=== PATIENT | female | born 1960 | race Caucasian/White ===

== ENCOUNTER 2020-08-10 10:52 | Outpatient (CLI) | payer MEDICARE, SELFPAY ==
[2020-08-10 12:35] LABS: EDCOVIDSCREEN Negative (Negative)
== END 2020-08-10 10:53 | disposition home or self-care (01) ==
PROVIDERS: PCP Family Medicine; Visit Provider Obstetrics & Gynecology Gynecology
DX: Z01.812 Encounter for preprocedural laboratory examination (principal); Z20.822 Contact with and (suspected) exposure to COVID-19
CPT/HCPCS: 36415; 87426; C9803; U0003; U0005

== ENCOUNTER 2020-08-12 00:18 | Day surgery (SDC) | payer MEDICARE, SELFPAY ==
[2020-08-09 15:58] VITALS: BMI 39.4
[2020-08-12 06:22] VITALS: BP 122/72; PULSE 76; RESP 16; TEMP 36.1; O2SAT 100
[2020-08-12] MEDS: ACETAMINOPHEN 500 MG TABLET 1000 MG PO (06:29)
[2020-08-12] MEDS: LACTATED RINGERS 1,000 ML 30 ML IV CONT (06:37)
--- NOTE | 2020-08-12 06:47 | WPDHPUPDATE1 ---
History and Physical Update Update Date/Time: 08/12/20 06:47 History and Physical has been reviewed, including an updated exam of the patient. There are NO changes in the patient's condition. Risks, benefits, and alternatives have been discussed and questions answered. Patient agrees to proceed with procedure.
--- NOTE | 2020-08-12 06:47 | PM.HPGS ---
History of Present Illness History of Present Illness Consent: Risks, benefits, and alternatives have been discussed and questions answered. Patient agrees to proceed with procedure. Chief complaint: post menopausal bleeding Narrative: Isis Sanchez is a 59 year old female new to me this week with complaints of bleeding on and off since August of 2018. The patient had spotting until February of this year where she has been having bleeding with heavy clots randomly.. She has also had episodes recently of gushing clear vaginal mucus. The patient states she has had no pain related to the bleeding episodes. It was recommended to proceed with hysteroscopy D and C to evaluate the lining of the endometrium. Risks of infection, bleeding, and perforation were reviewed. Possible pathology was discussed. Patient's questions were answered and she agrees to proceed. Review of Systems Constitutional: Constitutional: Reports fatigue ENT: Reports other (hayfever) Gastrointestinal: Gastrointestinal: Reports heartburn Musculoskeletal: Musculoskeletal: Reports arthralgias and Reports neck pain PMFSH Past Medical History Medical History (Updated 08/12/20 @ 06:56 by Ligia Bennett MD) Depression GERD (gastroesophageal reflux disease) Hyperlipidemia Neck mass 6 months old had excised then post op radiation and cobalt treatments (normal spontaneous vaginal delivery) x3 PRINCESS (obstructive sleep apnea) Surgical History Surgical History (Updated 08/12/20 @ 06:55 by Ligia Bennett MD) H/O laparoscopy x 2 cysts on ovaries x1 for BTL Hx laparoscopic cholecystectomy S/P D&C (status post dilation and curettage) 2011 S/P right knee arthroscopy Social History Social History Smoking status: Never smoker Alcohol intake: never Substance use type: does not use Spiritual care concerns: No Meds Home Medications and Allergies Home Medications Medication Instructions Recorded Confirmed Type Eye Vitamin and Minerals 1 tab-cap PO DAILY 08/09/20 08/12/20 History Vitamin D3 1 cap PO DAILY 08/09/20 08/12/20 History ibuprofen 800 mg BYMOUTH PRN PRN 08/09/20 08/12/20 History loratadine 10 mg BYMOUTH DAILY 08/09/20 08/12/20 History Allergies Allergy/AdvReac Type Severity Reaction Status Date / Time Sulfa (Sulfonamide Allergy Intermediate Hives Verified 08/12/20 06:27 Antibiotics) adhesive tape AdvReac Intermediate Blister Verified 08/12/20 06:27 Vital Signs Vital Signs - 24 hr 08/12/20 06:22 Temperature 96.9 F L Pulse Rate 76 Respiratory Rate 16 Blood Pressure 122/72 Pulse Oximetry 100 Exam Const: General: healthy appearing and alert Orientation/consciousness: patient oriented x3 Resp: Effort & Inspection: normal respiratory effort Auscultation: clear to auscultation bilaterally Cardio: Rate: regular rate Rhythm: regular rhythm GI: GI Palp: Yes Soft to palpation, No Tenderness to palpation present (GI) and No Palpable mass present : External Female Exam: normal external appearance Speculum Exam - Vagina: normal appearance of the vagina and normal vaginal discharge Speculum Exam - Cervix: normal appearance of the cervix Bimanual exam- vagina & uterus: uterine size normal and consistency normal Bimanual Exam- Adnexa, other: normal adnexae and No adnexal tenderness Neuro: General: patient oriented x3 Assessment and Plan Assessment and plan (1) Post-menopausal bleeding: Code(s): N95.0 - Postmenopausal bleeding Status: Acute Assessment and Plan: plan to proceed with hysteroscopy with D&C
--- NOTE | 2020-08-12 07:03 | WPDANESEPPF ---
Anes - Initial Pre Proc Eval Procedure: Operation Date: 08/12/20 07:30 Proposed Procedures p Hysteroscopy Dilation and Curettage - Ligia Bennett MD Date/Time: 08/12/20 07:03 Surgeon: Ligia Bennett MD Pre Op Diagnosis: post menopausal bleeding Patient Data Age: 59 Gender: F Height: 5 ft 9 in Weight: 121 kg Last Vital Signs Temp 96.9 F L 08/12/20 06:22 Pulse 76 08/12/20 06:22 Resp 16 08/12/20 06:22 BP 122/72 08/12/20 06:22 Pulse Ox 100 08/12/20 06:22 Allergies Allergy/AdvReac Type Severity Reaction Status Date / Time Sulfa (Sulfonamide Allergy Intermediate Hives Verified 08/12/20 06:27 Antibiotics) adhesive tape AdvReac Intermediate Blister Verified 08/12/20 06:27 Home Medications Medication Instructions Recorded Confirmed Type Eye Vitamin and Minerals 1 tab-cap PO DAILY 08/09/20 08/12/20 History Vitamin D3 1 cap PO DAILY 08/09/20 08/12/20 History ibuprofen 800 mg BYMOUTH PRN PRN 08/09/20 08/12/20 History loratadine 10 mg BYMOUTH DAILY 08/09/20 08/12/20 History Patient hx anesthesia problems: none Family hx anesthesia problems: none PMFSH Past Medical History Medical History (Updated 08/12/20 @ 06:56 by Ligia Bennett MD) Depression GERD (gastroesophageal reflux disease) Hyperlipidemia Neck mass 6 months old had excised then post op radiation and cobalt treatments (normal spontaneous vaginal delivery) x3 PRINCESS (obstructive sleep apnea) Surgical History Surgical History (Updated 08/12/20 @ 06:55 by Ligia Bennett MD) H/O laparoscopy x 2 cysts on ovaries x1 for BTL Hx laparoscopic cholecystectomy S/P D&C (status post dilation and curettage) 2011 S/P right knee arthroscopy Social History Social History Smoking status: Never smoker Alcohol intake: never Substance use type: does not use Spiritual care concerns: No Anes - Eval Final PreProcedure Day of Procedure 08/12/20 07:03 Patient weight: morbidly obese Heart: regular rate and rhythm Lungs: clear to auscultation Airway: Mallampati scale class II Neurological: alert and oriented Last oral intake: >/= 8 hours ASA classification: III Emergent: no Anesthetic plan: proceed Anesthesia type and monitoring: general GIVS and standard monitoring Informed Consent: The patient's anesthetic plan and its attendant risks and benefits were discussed with the patient/family/POA. Questions were solicited and answers provided to the satisfaction of the patient/family/POA.
[2020-08-12 08:00] VITALS: BP 112/69; PULSE 66; RESP 16; O2SAT 95
[2020-08-12] MEDS: KETOROLAC 30 MG/ML VIAL (*BKC) IV PUSH (08:16)
[2020-08-12] MEDS: fentaNYL CITRATE INJ (*CRX) 100 MCG/2 ML VIAL 25 MCG IV PUSH ×3 (08:18→08:45)
[2020-08-12 08:30] VITALS: BP 116/72; PULSE 68; RESP 20
--- NOTE | 2020-08-12 08:37 | P.OP_ITS ---
Procedure Note - Detailed Date of Procedure 08/12/20 Pre-op Diagnosis post menopausal bleeding Post-op Diagnosis same Procedure Performed D and C hysteroscopy with MyoSure resection Surgeon Ligia Bennett MD Anesthesia MAC and local Findings uterus sounds to 7cm the endometrium was very thickened with calcifications and papillary excrescence Description of Procedure the patient was taken to the operating room and placed in the dorsal lithotomy position. She was prepped and draped in the usual sterile fashion. [place] speculum was placed in the vagina and the cervix is grasped on the anterior lip with a tenaculum and injected with 1% lidocaine in each quadrant. The uterus is sounded to 7cm. The cervix is serially dilated with [place] the diagnostic hysteroscope was placed with the stated findings the MyoSure device is opened and placed in the majority of the thickened tissue is excised under direct visualization. The feel became bloody in unable to visualize the MyoSure device is removed. Medium sharp curette is used to sharply curette the remainder of the endometrium. All instruments removed. Patient is awakened from anesthesia and taken to recovery in stable condition. Sponge, needle, and instrument counts are correct per the OR staff. Estimated Blood Loss 5 Drains No Packing No Pathology yes ( Endometrial curettings in shape) Complications No immediate complications Condition stable Disposition PACU
[2020-08-12] MEDS: oxyCODONE HCL (*CRX) 5 MG TAB IR PO (08:43)
[2020-08-12 09:00] VITALS: BP 113/67; PULSE 65; RESP 20
[2020-08-12 09:20] VITALS: BP 116/69; PULSE 54; RESP 20
== END 2020-08-12 09:25 | disposition home or self-care (01) ==
PROVIDERS: PCP Family Medicine; Visit Provider Obstetrics & Gynecology Gynecology
PROC: 0U5B8ZZ Destruction of Endometrium, Via Natural or Artificial Opening Endoscopic (ICD-10-PCS; CPT 58563; principal; 2020-08-12 07:30)
DX: N95.0 Postmenopausal bleeding (principal); C54.1 Malignant neoplasm of endometrium; F32.9 Major depressive disorder, single episode, unspecified; K21.9 Gastro-esophageal reflux disease without esophagitis; E78.5 Hyperlipidemia, unspecified; G47.33 Obstructive sleep apnea (adult) (pediatric); E66.01 Morbid (severe) obesity due to excess calories; Z68.39 Body mass index [BMI] 39.0-39.9, adult
CPT/HCPCS: 58558; 36415; 87426; 88305; A9270; C9803; J1885; J2250; J2704; J3010; J7030; J7120

== ENCOUNTER 2024-04-25 17:07 | Emergency (ER) | payer MEDICARE, SELFPAY ==
[2024-04-25 17:21] VITALS: BP 132/81; PULSE 85; RESP 18; TEMP 36.2; O2SAT 98
--- NOTE | 2024-04-25 17:24 | ED.LOWEXIN ---
HPI - Extremity Injury (Lower) General Chief Complaint: Extremity Injury, Lower Stated Complaint: right ankle swelling/pain Source: patient Mode of arrival: ambulatory Limitations: no limitations History of Present Illness HPI Narrative: 63-year-old female presented for complaint of right ankle pain and swelling for 2 days. States the pain has progressed from a dull ache, and states she can not tolerate weight-bearing today. Denies injury. Has been taking ibuprofen with temporary relief. History of gout. Denies numbness, tingling, weakness, swelling or deformity. Related Data Home Medications ?Medication ?Instructions ?Recorded ?Confirmed ?Last Taken ?Type Eye Vitamin and Minerals 1 tab-cap PO DAILY 08/09/20 08/12/20 08/09/20 History Vitamin D3 1 cap PO DAILY 08/09/20 08/12/20 08/09/20 History ibuprofen 800 mg BYMOUTH PRN PRN Pain 08/09/20 08/12/20 08/09/20 History loratadine 10 mg BYMOUTH DAILY 08/09/20 08/12/20 08/11/20 History Bifidobacterium animalis 6 mg (5 1 cap PO DAILY 04/25/24 04/25/24 Unknown History billion cell) capsule ascorbate calcium (vitamin C) 814 mg PO 04/25/24 Unknown History mg/gram oral powder (Vitamin C (ascorbate calcium)) famotidine 20 mg tablet 20 mg PO DAILY 04/25/24 Unknown History Allergies Allergy/AdvReac Type Severity Reaction Status Date / Time Sulfa (Sulfonamide Allergy Intermediate Hives Verified 04/25/24 17:25 Antibiotics) adhesive tape AdvReac Intermediate Blister Verified 04/25/24 17:25 Review of Systems Review of Systems: CONSTITUTIONAL: Denies body aches, fever, chills CARDIOVASCULAR: Denies chest pain, palpitations, or edema. RESPIRATORY: Denies cough or dyspnea. GASTROINTESTINAL: Denies abdominal pain, nausea, vomiting, or diarrhea. SKIN: Denies rash or wounds. MUSCULOSKELETAL: Reports right ankle pain and swelling NEUROLOGIC: Denies headache, numbness, tingling, or weakness. PSYCH: Denies depression or anxiety. All systems reviewed & are unremarkable except as noted in HPI and below PMFSH Past Medical History Medical History Neck mass 6 months old had excised then post op radiation and cobalt treatments (normal spontaneous vaginal delivery) x3 Depression GERD (gastroesophageal reflux disease) PRINCESS (obstructive sleep apnea) Hyperlipidemia Surgical History Surgical History S/P right knee arthroscopy H/O laparoscopy x 2 cysts on ovaries x1 for BTL Hx laparoscopic cholecystectomy S/P D&C (status post dilation and curettage) 2011 Social History Social History Smoking status: Never smoker Alcohol intake: never Substance use type: does not use Spiritual care concerns: No Comments At time of signature, I have reviewed and agree with nursing past medical, surgical, social and family history unless otherwise noted. Please see nursing chart for further information. There is no relevant family history pertinent to the presenting complaint Exam Narrative: GENERAL: Well-appearing CHEST: Speaks in full sentences. No respiratory distress. HEART: Regular rate and rhythm. Normal and equal peripheral pulses. EXTREMITIES: Patient is unable to tolerate weight-bearing to the leg. Mild swelling, erythema and warmth to the right lateral ankle. Tender with palpation around the malleolus. Foot Has normal strength and sensation. Decreased range of motion with flexion/extension/rotation of ankle due to pain with movement. No ecchymosis, No open wounds, or obvious deformity; alignment normal, pulse palpable and equal bilaterally, skin warm, dry, pink. Capillary refill less than 3 seconds. SKIN: Warm, dry, no rash. NEURO: Alert and oriented x3. PSYCH: Normal mood and affect Course Course Emergency Course: Patient is aware of diagnosis, understands and agrees to treatment plan. Anticipatory guidance given. Patient agrees to follow-up as directed and is aware of reasons to seek care at the emergency department. Portions of this record may have been created with voice recognition software Level of Care: Express Care Visit Vital Signs Vital signs: Vital Signs Temperature 97.2 F L 04/25/24 17:21 Pulse Rate 85 04/25/24 17:21 Respiratory Rate 18 04/25/24 17:21 Blood Pressure 132/81 04/25/24 17:21 Pulse Oximetry 98 04/25/24 17:21 Oxygen Delivery Room Air 04/25/24 17:21 Temperature 97.2 F L 03/01/25 17:21 Pulse Rate 85 04/25/24 17:21 Respiratory Rate 18 04/25/24 17:21 Blood Pressure 132/81 04/25/24 17:21 Pulse Oximetry 98 04/25/24 17:21 Oxygen Delivery Room Air 04/25/24 17:21 Reviewed MDM - Extremity Injury (Lower) MDM Narrative Medical decision making narrative: Discussed physical exam findings c/w gout. Pt states she cannot tolerate prednisone due to heart racing and says colchicine did not help in previous gout flares. Advised supportive measures and signs/symptoms to go to the ER. Pt is appropriate for outpt treatment and f/u. Differential Diagnosis Differential diagnosis: Likely ankle sprain and strain, ankle fracture and other (gout) Discharge Plan Discharge Clinical Impression: Acute gout of ankle Patient Disposition: Home, Self-Care Condition: Stable Instructions: Antibiotic Form, Low Purine Diet (ED), Gout (ED) Additional Instructions: Gout is a form of inflammatory?arthritis that causes pain and swelling in your joints. A buildup of excess uric acid in your body causes gout. Your body naturally makes uric acid when it breaks down chemicals called purines found in certain foods and drinks. Your kidneys usually filter uric acid out of your blood. Gout symptoms come and go in episodes called flares or gout attacks.?Gout attacks usually last a week or two. You might have some flares that last longer than others, and some might cause more severe symptoms. Between attacks, you might not experience any gout symptoms. Risks include: Parent/grandparent with gout Eating a lot of animal proteins ? especially animal flesh, shellfish and foods that contain organ meat. Drinking alcohol regularly. Taking a diuretic medication (water pills). Taking immunosuppressants Take medication as directed Recommend low purine diet Follow up with primary care provider, call Saturday to schedule an appointment Go to the ER for worsening symptoms or concerns Patient Language: Amharic Prescriptions: New indomethacin 50 mg capsule 50 mg PO TID Qty: 30 0RF Rx Instructions: administer with food or milk No Action famotidine 20 mg tablet 20 mg PO DAILY Vitamin C (ascorbate calcium) 814 mg/gram powder PO Bifidobacterium animalis 6 mg (5 billion cell) capsule 1 cap PO DAILY Vitamin D3 1 cap PO DAILY Eye Vitamin and Minerals 1 tab-cap PO DAILY loratadine 10 mg BYMOUTH DAILY ibuprofen 800 mg BYMOUTH PRN PRN (Reason: Pain) Follow-up/Referrals: Keshia,Lexa Hernandes MD [Primary Care Provider] - Time of Disposition: 17:39
== END 2024-04-25 17:43 | disposition home or self-care (01) ==
PROVIDERS: Emergency Provider Nurse Practitioner Family; PCP Family Medicine
DX: M10.9 Gout, unspecified (principal); E78.5 Hyperlipidemia, unspecified; K21.9 Gastro-esophageal reflux disease without esophagitis
CPT/HCPCS: 99213; G0463